=== PATIENT | female | born 1990 | race Caucasian/White ===

== ENCOUNTER 2019-12-10 10:08 | Day surgery (SDC) | payer OTHER ==
[2019-12-10 10:26] VITALS: BMI 38.6
[2019-12-10] MEDS ORDERED: hydrALAZINE 20 MG/ML VIAL SLOW IVP PRN (10:52)
[2019-12-10 11:37] LABS: #Eosinphils 0.1 thou/uL (0.0-0.7); #Lymphocytes 1.8 thou/uL (1.20-3.40); #Monocytes 0.8 thou/uL (0.11-0.59); #Neutrophils 9.2 thou/uL (1.40-6.50); %Basophils 0.3 % (0.0-1.0); %Eosinophils 0.7 % (0.0-10.0); %Lymphocytes 15.2 % (21.0-51.0); %Monocytes 6.3 % (0.0-10.0); %Neutrophils 77.5 % (42.0-75.0); Hemoglobin 11.8 g/dL (12.0-16.0); Mean Corpuscular Hemoglobin 29.1 pg (27.0-31.0); Mean Corpuscular Volume 88.4 fL (78.0-98.0); Mean Platelet Volume 7.4 fL (7.4-10.4); Platelet Count 240 thou/uL (130-400); RBC Distribution Width 13.6 % (11.5-14.5); Red Blood Cell (RBC) Count 4.05 mill/uL (4.20-5.40); White Blood Cell (WBC) Count 11.9 thou/uL (4.8-10.8)
[2019-12-10 12:11] LABS: ALT (SGPT) 14 U/L (8-55); AST (SGOT) 14 U/L (5-34); Alkaline Phosphatase 153 U/L (40-110); Anion Gap 11 mmol/L (10-20); BUN (Urea Nitrogen) 6 mg/dL (7.0-18.7); Bilirubin, Total 0.2 mg/dL (0.2-1.2); Calc. Creatinine Clearance 219 mL/min (70-130); Calcium 8.1 mg/dL (7.8-10.44); Carbon Dioxide 25 mmol/L (22-29); Chloride 106 mmol/L (98-107); Estimated GFR-MDRD Greater than 90; Globulin 2.7 g/dL (2.4-3.5); Glucose 89 mg/dL (70-105); Potassium 3.5 mmol/L (3.5-5.1); Protein, Total 5.7 g/dL (6.0-8.3); Sodium 138 mmol/L (136-145)
[2019-12-10 13:53] LABS: Creatinine, Urine 64.52 mg/dL (47-110)
--- NOTE | 2019-12-10 21:50 | SS ---
DATE OF ADMISSION: 12/10/2019 DATE OF DISCHARGE: 12/10/2019 REGULAR PHYSICIAN: Joe Mccray MD. EVALUATING PHYSICIAN: Patrice Payne MD CHIEF COMPLAINT: Elevated blood pressures in Dr. Mccray's office. HISTORY OF PRESENT ILLNESS: Ms. Hernandez is a 29-year-old, white, G3, P2, with an estimated date of confinement of 01/01/2020, who presents from Dr. Mccray's office with complaints of having elevated blood pressures there. There, her blood pressures per her report are 163/109 and 155/99. She was also told that the baby's heart rate was elevated. She was sent here for further evaluation. At the present time, she denies visual changes or headache. She denies ruptured membranes or vaginal bleeding. PAST OBSTETRICAL HISTORY: Includes 2 previous sections, both for elevated blood pressure. PAST MEDICAL HISTORY: Denies chronic hypertension, but states that her blood pressure has been elevated in each of her pregnancies. PAST SURGICAL HISTORY: x2 as above. CURRENT MEDICATIONS: 1. vitamins. 2. Labetalol 200 mg p.o. b.i.d. ALLERGIES: NO KNOWN ALLERGIES. SOCIAL HISTORY: Denies tobacco, alcohol, or drug use. FAMILY HISTORY: Unremarkable. REVIEW OF SYSTEMS: Denies nausea, vomiting, fever, chills, ruptured membranes, vaginal bleeding, persistent headache, or scotomata. PHYSICAL EXAMINATION: VITAL SIGNS: Blood pressures in triage are initially 137/89, 144/80. Serial blood pressures were obtained and none are in the severe range. Her final blood pressure is 134/71. GENERAL: She is pleasant and in no acute distress. ABDOMEN: Soft, nontender, and gravid. PELVIC: Deferred. heart rate tracing is stable with spontaneous accelerations. No decelerations are seen. No significant uterine contractions are noted. LABORATORY DATA: White count 11.9, hemoglobin and hematocrit 11.8 and 35.7, platelet count is 240,000. On chemistries, her sodium is 138, potassium 3.5, creatinine 0.61, glucose 89, total bilirubin 0.2, AST and ALT are 14 and 14 respectively. Protein to urine total protein is 12, urine creatinine is 64.52, giving a ratio of 0.18. ASSESSMENT: 1. 36- and 6/7-week intrauterine . 2. History of two previous sections. 3. No evidence of severe preeclampsia at this time. PLAN: The patient will be dismissed to home. [facility] precautions were reviewed with her in detail. I did discuss the patient with Dr. Mccray, and she has a followup scheduled for later this week. Job ID: [id number] [id number]
== END 2019-12-10 15:25 | disposition home health service (06) ==
LOC: L&D/OP 10:08
PROVIDERS: ATTEND Obstetrics & Gynecology
DX: O99.89 Other specified diseases and conditions complicating pregnancy, childbirth and the puerperium (principal); R03.0 Elevated blood-pressure reading, without diagnosis of hypertension; O34.219 Maternal care for unspecified type scar from previous cesarean delivery; Z3A.36 36 weeks gestation of pregnancy; Z79.899 Other long term (current) drug therapy
CPT/HCPCS: 36415; 80053; 82570; 84156; 85025; 99283